=== PATIENT | male | born 1970 | race Two or more races ===

== ENCOUNTER 2022-06-06 14:37 | Emergency (ER) | payer OTHER ==
[~2022-06-06] VITALS: Ht 170.2 cm; Wt 81.6 kg
== END 2022-06-06 18:21 | disposition home or self-care (01) ==
LOC: ER 14:37
DX: S01.91XA Laceration without foreign body of unspecified part of head, initial encounter (principal); W19.XXXA Unspecified fall, initial encounter; Y93.89 Activity, other specified; Y92.9 Unspecified place or not applicable; Y99.9 Unspecified external cause status

== ENCOUNTER 2023-03-29 09:57 | Outpatient (CLI) | payer OTHER | END 2023-03-29 10:09 | disposition home or self-care (01) | LOC: RAD 09:57 | DX: M99.01 Segmental and somatic dysfunction of cervical region (principal); M99.02 Segmental and somatic dysfunction of thoracic region; M99.03 Segmental and somatic dysfunction of lumbar region; M99.04 Segmental and somatic dysfunction of sacral region; M99.05 Segmental and somatic dysfunction of pelvic region ==

== ENCOUNTER → 2023-11-10 08:41 | Outpatient (CLI) | payer OTHER ==
[2023-11-10 09:26] LABS: HEMATOCRIT 45.5 % (39.0-48.0); HEMOGLOBIN 15.9 g/dL (13-16.00); MEAN CELL VOLUME 91.7 fL (80.0-100.00); MEAN CORPUSCULAR HGB CONC 34.9 g/dl (32.0-36.0); PLATELET COUNT 356 K/uL (150-450); RED BLOOD COUNT 4.97 M/uL (4.00-6.00)
[2023-11-10 09:30] LABS: URINE APPEARANCE Clear; URINE BILIRRUBIN Negative (NEGATIVE); URINE BLOOD Negative; URINE COLOR Yellow; URINE GLUCOSE Negative (NEGATIVE); URINE LEUKOCYTE Negative; URINE NITRATE Negative; URINE PROTEIN Negative (NEGATIVE); URINE UROBILINOGEN 0.2 E.U./dl
[2023-11-10 09:33] LABS: URINE BACTERIA 12.5 uL (0.0-1933); URINE RBC 4.2 uL (0.0-20.8); URINE WBC 2.3 uL (0.0-23.2)
[2023-11-10 09:52] LABS: URINE EPITHELIAL CELLS 1.2 uL (0.0-38.8)
[2023-11-10 10:58] LABS: BILIRUBIN TOTAL 0.54 mg/dL (0.3-1.2); CALCIUM 9.6 mg/dL (8.5-10.1); CHOL HDL RATIO 3.5 (0-5.0); CREATININE SERUM 0.87 mg/dL (0.70-1.30); GFR 92.51; GLOBULINA 3.4 G/DL (2.4-3.5); POTASSIUM 4.51 mEq/L (3.5-5.1); PROSTATIC SPECIFIC ANTIGEN 2.71 NG/ML (0.010-4.00); T4 FREE 0.82 NG/ML (0.76-1.46); TOTAL PROTEIN 7.4 gm/dL (6.4-8.2); TSH 2.5 uIU/mL (0.358-3.74)
== END | disposition home or self-care (01) ==
LOC: LAB 08:41
PROVIDERS: ATTEND Internal Medicine Gastroenterology
DX: R19.7 Diarrhea, unspecified (principal); E66.3 Overweight; Z12.11 Encounter for screening for malignant neoplasm of colon; R10.84 Generalized abdominal pain; Z12.5 Encounter for screening for malignant neoplasm of prostate; Z12.89 Encounter for screening for malignant neoplasm of other sites

== ENCOUNTER 2023-11-10 09:14 | Outpatient (CLI) | payer OTHER | END 2023-11-11 08:30 | disposition home or self-care (01) | LOC: RAD 09:14 | PROVIDERS: ATTEND Orthopaedic Surgery Foot and Ankle Surgery | DX: M51.26 Other intervertebral disc displacement, lumbar region (principal) ==

== ENCOUNTER 2023-11-16 11:05 | Outpatient (CLI) | payer OTHER | END 2023-11-16 12:06 | disposition home or self-care (01) | LOC: MRI 11:05 | PROVIDERS: ATTEND Orthopaedic Surgery Foot and Ankle Surgery | DX: M51.25 Other intervertebral disc displacement, thoracolumbar region (principal) | CPT/HCPCS: 72148 ==